=== PATIENT | female | born 1990 | race Caucasian/White ===

== ENCOUNTER 2020-09-09 09:30 | Day surgery (SDC) | payer OTHER ==
[~2020-09-09] VITALS: Ht 165.1 cm; Wt 77.0 kg
[~2020-09-09 09:30] MED LIST: FLONASE ALLERG9.9 ML NS; MAGNESIUM250 M1 PO; MOTRIN IB200 MG PO; NORCO 5-325 TA1 EACH PO; PERCOCET 5-3251 EACH PO; REGLAN10 MG PO; SUDOGEST60 MG PO; VITAMIN C1000 MG PO; VITAMIN D3125 MC2 PO
[2020-09-09] MEDS ORDERED: IBUPROFEN600 MG PO (13:33)
[2020-09-09] MEDS ORDERED: OXYCODON-ACETA1 EAC2 PO (13:33)
[2020-09-09] MEDS ORDERED: ACETAMINOPHEN500 MG PO (13:34)
--- NOTE | 2020-09-09 13:41 | NUR ---
09/09/20 1341 Sheets,Gauri 1318 PT ARRIVED TO PACU WITH ORAL AIRWAY IN PLACE, VSS. PT ON 6L VIA MASK. RESP EVEN AND UNLABORED. 1330 PT WOKE TO TACTILE STIMULI AND ORAL AIRWAY REMOVED. PT REORIENTED TO PACU. PT DENIES NAUSEA AND PAIN. 1335 MD AT BEDSIDE AND PT WAKES TO TACTILE STIMULI, MD CALLED . 1338 MANAGER VIDEO GAMES AT BEDSIDE AND PT CONTINEUS TO DENIES NAUSEA. PT EASILY FALLS BACK TO SLEEP. RESP RATE 10, O2 SAT 99 ON RA.
--- NOTE | 2020-09-09 14:03 | NUR ---
PATIENT TO FLOOR FROM PACU, BEDSIDE REPORT FROM [facility]. PATIENT APPEARS DROWSY, WAKES TO VERBAL STIMULI. VSS. DRESSING TO ABDOMEN, BANDAIDS, C/D/I PATIENT REPORTS NO NAUSEA, AND RATES PAIN 1/10 ON PAIN SCALE. PROVIDED WATER AND SNACKS. CALL LIGHT WITHIN REACH. NO OTHER NEEDS AT THIS TIME.
--- NOTE | 2020-09-09 15:00 | NUR ---
PATIENT UP AND AMBULATING WELL. REPORTS PAIN WELL CONTROLLED 2/10 ON PAIN SCALE. REINFORCED STERI STRIPS WITH BAND AID AT UNBILICUS, NOTED SOME DRAINAGE. PATIENT REPORTS NO NAUSEA, STATES " WHAT THE PATCH MACHINE OPERATOR GAVE ME WORKED SO WELL". PROVIDED DISCHARGE INSTRUCTION AND ANSWERED QUESITONS AND CONCERNS.
--- NOTE | 2020-09-09 15:11 | NUR ---
PATIET AMBULATED TO BATHROOM, VOIDED WELL. PROVIDED PAIN MEDICATION PER MAR. CALL LIGHT WITHIN REACH. NO OTHER NEEDS AT THIS TIME.
--- NOTE | 2020-09-13 08:12 | OR ---
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 POSTOPERATIVE DIAGNOSIS: Acalculous cholecystitis, ejection fraction 0% on CCK HIDA test. PROCEDURE: 1. Laparoscopic cholecystectomy and intraoperative cholangiogram. 2. Surgeon-directed fluoroscopy. ANESTHESIA: General endotracheal; Rodney Buzz, WOOD [employer]AME CARPENTER, and local 20 mL of 0.25% Marcaine with epinephrine. INDICATION: This 29-year-old white woman has had chronic bouts of severe right upper abdominal pain for the past 2 months. This included subscapular pain on the right side. She was evaluated by Dr. Toledo and underwent ultrasound of the gallbladder, which was normal and ultimately a CCK HIDA test, which showed an ejection fraction of 0% with reproduction of her symptoms. On the basis of her clinical history and these studies, she is likely to have acalculous cholecystitis (biliary dyskinesia) and is admitted at this time to undergo cholecystectomy preferred by laparoscopic approach. Of note, she does have family history of cholecystectomy for acalculous cholecystitis in a sister. The patient and her who attend to understand the risks of bleeding, infection, bile duct injury, need for open procedure, and of course failure to cure her symptoms and wished to proceed. FINDINGS: The gallbladder was chronically inflamed. The liver was normal. Cholangiogram was normal. The gallbladder once opened showed chronic inflammatory change of the mucosa. No sign of neoplasm and no stones. There were no other findings of concern. A brief look in the lower abdomen showed no sign of endometriosis as she had been diagnosed in the past in the pelvis. DESCRIPTION OF PROCEDURE: Electronically Signed By: LUAN QUIGLEY MD 09/13/20 0812 PATIENT NAME: BETZY DAVENPORT OPERATIVE REPORT DATE OF : 88 REPORT #: [id number] PHYSICIAN: LUAN QUIGLEY MD PCP: BECKY LARA REPORT IS CONFIDENTIAL AND NOT TO BE RELEASED WITHOUT AUTHORIZATION [facility] [address], [place] [address] Signed The patient was brought to the operating room and given a general endotracheal anesthetic. Preoperative antibiotic Ancef was given. Sequential compression device stockings were used and heparin subcutaneously administered. The abdomen was prepared with a chlorhexidine solution and draped sterilely. An infraumbilical incision was made and using an open Jf cannula technique, pneumoperitoneum was achieved to a level of 14 mmHg of carbon dioxide gas. Intraabdominal inspection showed no sign of ascites or carcinomatosis. The gallbladder looked chronically inflamed, but floppy. The liver was normal. Inspection in the lower abdomen did not show any endometriosis outside of the pelvis, so an extensive evaluation there was not undertaken otherwise. Three additional trocars were placed in usual configuration in the subxiphoid, right midclavicular, and right anterior axillary line. The gallbladder was elevated cephalad and retracted laterally and using blunt and electrocautery dissection, the triangle of Calot was dissected free. Due to her thin body habitus, good visualization of all structures including the common duct was noted. The cystic artery and cystic duct were dissected free, maintaining the critical view of safety. A clip was applied across gallbladder cystic duct junction as well as the cystic artery and a transverse choledochotomy was made in the cystic duct. Egress of some amount of blood along the cystic duct was secured with cautery. Ultimately an Edwards type cholangiocatheter was used to provide cholangiography showing free flow of contrast in biliary tree with prompt emptying into the duodenum. There was no sign of filling defect, biliary anomaly, or other problem. Notably, there was a retrograde pancreatogram noted as well. The cystic duct was triply clipped and divided as was the cystic artery and the gallbladder dissected free in a retrograde fashion using electrocautery. The gallbladder was placed in an endobag and extracted through the infraumbilical port site without problem, opened on the back table by the circulating nurse and examination showed chronic inflammatory changes of the mucosa. No sign of stones or neoplasm. Irrigation was undertaken in subhepatic space. There was no sign of bile leak, bleeding, or other problems. The trocars were removed under direct visualization. A small amount of oozing was noted in the right upper quadrant trocar site, which was secured with electrocautery. Similarly was true at the epigastric port. Once hemostasis was complete, plans were made for closure. The infraumbilical fascial incision was reapproximated with interrupted 0 Vicryl suture. A 20 mL of 0.25% Marcaine with epinephrine was injected locally and the skin closed with interrupted 3-0 Vicryl. Steri-Strips were applied. The patient was ultimately extubated and transferred to recovery room in good condition having suffered no complications. Sponge, needle, and instrument counts were reported as correct x3. Luan Quigley MD Electronically Signed By: LUAN QUIGLEY MD 09/13/20 0812 PATIENT NAME: BETZY DAVENPORT OPERATIVE REPORT DATE OF : 88 REPORT #: [id number] PHYSICIAN: LUAN QUIGLEY MD PCP: BECKY LARA REPORT IS CONFIDENTIAL AND NOT TO BE RELEASED WITHOUT AUTHORIZATION [address] [place] [address] Signed /LEANDRA /[id number] cc: MD Becky Roger ARNP Copies: TATI TOLEDO MD, SARAH E ARNP ~ Electronically Signed By: LUAN QUIGLEY MD 09/13/20811 PATIENT NAME: BETZY DAVENPORT OPERATIVE REPORT DATE OF : [birth year] REPORT #: [id number] PHYSICIAN: LUAN QUIGLEY MD PCP: BECKY LARA REPORT IS CONFIDENTIAL AND NOT TO BE RELEASED WITHOUT AUTHORIZATION
--- NOTE | 2020-09-13 12:20 | PATH ---
[facility] [address], [place] [address] Signed SPECIMEN(S): A GALLBLADDER SPECIMEN SOURCE: A. GALLBLADDER CLINICAL HISTORY: Chronic cholecystitis. FINAL PATHOLOGIC DIAGNOSIS: Gallbladder, cholecystectomy: - Chronic cholecystitis. NAL:cml:C2NR MICROSCOPIC EXAMINATION: Histologic sections of all submitted blocks are examined by light microscopy. These findings, together with the gross examination, support the pathologic diagnosis. GROSS DESCRIPTION: The specimen, labeled "JM," and designated on the requisition "gallbladder," is received in formalin and consists of Specimen: Previously opened gallbladder. Dimensions: 6.9 x 4.0 x 0.5 cm. Serosa: Edith Endave-pascual and smooth. Cystic Duct: obstruction cannot be determined. Calculi: Not grossly identified. Mucosa: Green pascual and velvety. Wall thickness: 0.4 cm. Lymph node: No pericystic lymph nodes are grossly identified. Additional: None. El Teacher sections are submitted in cassette (A1). AC (under the direct supervision of a pathologist) The Gross Description was prepared using a voice recognition system. The report was reviewed for accuracy; however, sound-alike word errors, addition and/or deletions may occur. If there is any question about this report, please contact Client Services. PERFORMING LABORATORY: The technical component was performed by [facility], [address] [place] [id number] ([employer]: Delaney Regan MD; CLIA# [id number]). Professional interpretation was performed by PATIENT NAME: BETZY DAVENPORT [facility] DATE OF : [birth year] REPORT #: [id number] PHYSICIAN: ZHANG PATHOLOGY PCP: ALEXANDRA LARA REPORT IS CONFIDENTIAL AND NOT TO BE RELEASED WITHOUT AUTHORIZATION [facility] [address], [place] [address] Signed [facility], [facility], [address] [facility] [address], [place], [place] [address] (CLIA# [id number]). Diagnostician: Asiya Street MD Pathologist Electronically Signed 09/13/2020 Copies: ~ PATIENT NAME: BETZY DAVENPORT PATHOLOGY DATE OF : 88 REPORT #: [id number] PHYSICIAN: ZHANG PATHOLOGY PCP: ALEXANDRA LARA REPORT IS CONFIDENTIAL AND NOT TO BE RELEASED WITHOUT AUTHORIZATION
== END 2020-09-09 15:30 | disposition home or self-care (01) ==
LOC: DS 09:30
PROVIDERS: ATTEND Surgery
PROC: BF13YZZ Fluoroscopy of Gallbladder and Bile Ducts using Other Contrast (ICD-10-PCS; 2020-09-09)
PROC: 0FT44ZZ Resection of Gallbladder, Percutaneous Endoscopic Approach (ICD-10-PCS; principal; 2020-09-09 10:00)
DX: K81.1 Chronic cholecystitis (principal); K21.9 Gastro-esophageal reflux disease without esophagitis; Z79.899 Other long term (current) drug therapy; Z90.711 Acquired absence of uterus with remaining cervical stump; Z87.42 Personal history of other diseases of the female genital tract
CPT/HCPCS: 00790; 74300; A9270; J0131; J0690; J1100; J1644; J1790; J1885; J2001; J2250; J2405; J2550; J2704; J3010; J7121; Q9967